=== PATIENT | male | born 1975 | race Two or more races ===

== ENCOUNTER 2018-11-03 09:18 | Emergency (ER) | payer MEDICAID ==
[~2018-11-03] VITALS: Ht 165.1 cm; Wt 106.3 kg
[~2018-11-03 09:18] MED LIST: ALBU8HFA IH; CLIN150C2 PO; CLIN300C65 PO; FENO48TA15 PO; HYDR1TAB PO; IBUP-1984 PO; INSU100V30 SQ; METF500T PO; PIOG15TA8 PO
[2018-11-03 09:52] LABS: COLOR,URINE YELLOW (Yellow); GLUCOSE, URINE >=1000 mg/dl (Neg); KETONES,URINE 40 mg/dl (Neg); LEUKOCYTE ESTERASE ,URINE NEGATIVE (Neg); NITRITES, URINE NEGATIVE (Neg); OCCULT BLOOD,URINE TRACE-LYSED (Neg); PH,URINE 5.5 (4.8-8.0); PROTEIN,URINE NEGATIVE (Neg); UROBILINOGEN,URINE 0.2 E.U/dL (0.2-1.0)
[2018-11-03 09:58] LABS: UA COLLECTION TYPE CLN CATCH MIDSTREAM
[2018-11-03 09:59] LABS: CLARITY,URINE Slightly Cloudy (Clear)
[2018-11-03 10:01] LABS: BASOPHILS % (AUTO) 0.1 % (0-1); EOSINOPHILS % (AUTO) 0.3 % (0-6); HEMATOCRIT 51.8 % (42.0-52.0); HEMOGLOBIN 17.5 g/dl (14.0-17.9); LYMPHOCYTES # (AUTO) 0.9 X10'3 (1.1-4.8); LYMPHOCYTES % (AUTO) 9.6 % (21-51); MEAN CORPUSCULAR HGB CONC 33.8 % (33.0-36.5); MEAN CORPUSCULAR VOLUME 88.8 FL (78-98); MEAN PLATELET VOLUME 9.2 FL (7.4-10.4); MONOCYTES # (AUTO) 0.2 X10'3 (0-0.9); MONOCYTES % (AUTO) 2.5 % (2-12); NEUTROPHILS # (AUTO) 7.9 X10'3 (1.8-7.7); NEUTROPHILS % (AUTO) 87.5 % (42-75); PLATELET COUNT 166 X10'3 (140-440); RED BLOOD COUNT 5.84 X10'6 (4.70-6.10); RED CELL DISTRIBUTION WIDTH 12.9 % (11.5-14.5); WHITE BLOOD COUNT 9.1 X10'3 (4.5-11.0)
[2018-11-03] MEDS ORDERED: ondansetron/PF 4mg/2ml inj IV ONE (10:05)
[2018-11-03] MEDS ORDERED: normal saline 1000ML IV soln IVB ONE ×2 (10:05)
[2018-11-03 10:19] LABS: INR 1.1 INR; PROTHROMBIN TIME 11.4 SECONDS (9.0-12.0)
[2018-11-03 10:19] LABS: BACTERIA,URINE FEW /HPF (Neg); MUCUS STRANDS NONE SEEN /LPF (Neg); RBC,URINE 0-2 /HPF (0-2); SQUAMOUS EPITHELIAL CELL,UR MANY /LPF (FEW); WBC,URINE 0-4 /HPF (0-4)
[2018-11-03 10:27] LABS: ALANINE AMINOTRANSFERASE 105 U/L (12-78); ALBUMIN 3.9 G/DL (3.4-5.0); ALBUMIN/GLOBULIN RATIO 0.8 (1.1-1.5); ALKALINE PHOSPHATASE 111 IU/L (46-116); ANION GAP 16 (8-16); ASPARTATE AMINO TRANSFERASE 61 U/L (10-37); BILIRUBIN,TOTAL 2.6 MG/DL (0.1-1.0); BLOOD UREA NITROGEN 23 MG/DL (7-18); BUN/CREATININE RATIO 24.7 (5.4-32.0); CALCIUM 9.3 MG/DL (8.5-10.1); CHLORIDE 96 MMOL/L (99-107); CREATININE 0.93 MG/DL (0.60-1.10); GLUCOSE 437 MG/DL (70-104); LIPASE 184 U/L (73-393); POTASSIUM 4.8 MMOL/L (3.5-5.1); SODIUM 133 MMOL/L (135-145); TOTAL CARBON DIOXIDE 21.2 MMOL/L (24-32); TOTAL PROTEIN 8.9 G/DL (6.4-8.2); eGFR 88 ML/MIN
[2018-11-03] MEDS ORDERED: pantoprazole 40 MG vial IV ONE (10:35)
[2018-11-03] MEDS ORDERED: ONDA4TAB6 PO (11:52)
[2018-11-03 13:05] VITALS: BP 140/95
== END 2018-11-03 13:07 | disposition home or self-care (01) ==
LOC: ER 09:18
DX: R10.13 Epigastric pain (principal); R10.33 Periumbilical pain; R11.2 Nausea with vomiting, unspecified; R19.7 Diarrhea, unspecified; R00.0 Tachycardia, unspecified; I10 Essential (primary) hypertension; E11.9 Type 2 diabetes mellitus without complications; Z79.2 Long term (current) use of antibiotics; Z79.4 Long term (current) use of insulin; Z79.84 Long term (current) use of oral hypoglycemic drugs; Z79.899 Other long term (current) drug therapy
CPT/HCPCS: 36415; 71045; 74176; 80053; 81001; 82948; 83690; 84484; 85025; 85610; 93005; 96361; 96374; 96375; 99284; C9113; J2405; J7030

== ENCOUNTER 2020-02-06 19:39 | Emergency (ER) | payer MEDICAID ==
[~2020-02-06] VITALS: Ht 165.1 cm; Wt 116.0 kg
[~2020-02-06 19:39] MED LIST changes: +ONDA4TAB6 PO
[2020-02-06] MEDS ORDERED: AMOX-422 PO (21:16)
[2020-02-06 21:40] VITALS: BP 142/101
== END 2020-02-06 21:38 | disposition home or self-care (01) ==
LOC: ER 19:41
DX: L03.012 Cellulitis of left finger (principal); I10 Essential (primary) hypertension; E11.9 Type 2 diabetes mellitus without complications; Z79.899 Other long term (current) drug therapy
CPT/HCPCS: 10060; 99283

== ENCOUNTER 2021-03-24 05:09 | Inpatient (IN) | payer MEDICAID ==
[2021-03-13 14:06] LABS: BASOPHILS # (AUTO) 0.1 X10'3 (0-0.2); BASOPHILS % (AUTO) 0.9 % (0-1); EOSINOPHILS # (AUTO) 0.3 X10'3 (0-0.9); EOSINOPHILS % (AUTO) 4.1 % (0-6); LYMPHOCYTES # (AUTO) 2.7 X10'3 (1.1-4.8); LYMPHOCYTES % (AUTO) 42.3 % (21-51); MEAN CORPUSCULAR HGB CONC 34.1 g/dL (33.0-36.5); MEAN CORPUSCULAR VOLUME 88.1 FL (78-98); MEAN PLATELET VOLUME 8.4 FL (7.4-10.4); MONOCYTES # (AUTO) 0.5 X10'3 (0-0.9); MONOCYTES % (AUTO) 7.5 % (2-12); NEUTROPHILS # (AUTO) 2.9 X10'3 (1.8-7.7); NEUTROPHILS % (AUTO) 45.2 % (42-75); PRE OP HEMATOCRIT 43.6 % (42.0-52.0); PRE OP HEMOGLOBIN 14.9 g/dL (14.0-17.9); PRE OP PLATELET COUNT 146 X10'3 (140-440); RED BLOOD COUNT 4.95 X10'6 (4.70-6.10); RED CELL DISTRIBUTION WIDTH 13.6 % (11.5-14.5)
[2021-03-13 14:08] LABS: ALBUMIN 3.6 G/DL (3.4-5.0); ALBUMIN/GLOBULIN RATIO 0.8 (1.1-1.5); ALKALINE PHOSPHATASE 79 IU/L (46-116); BLOOD UREA NITROGEN 15 MG/DL (7-18); BUN/CREATININE RATIO 20.3 (5.4-32.0); CHLORIDE 107 MMOL/L (99-107); CREATININE 0.74 MG/DL (0.60-1.10); PRE OP ALT 67 U/L (30-65); PRE OP ANION GAP 7 (8-16); PRE OP AST 33 U/L (10-37); PRE OP BILIRUB, TOTAL 0.8 MG/DL (0.0-1.0); PRE OP POTASSIUM 4.3 MMOL/L (3.4-5.1); PRE OP SODIUM 142 MMOL/L (135-145); TOTAL CARBON DIOXIDE 28.4 MMOL/L (24-32); eGFR > 90 ML/MIN
[2021-03-13 14:21] LABS: PRE OP GLUCOSE 203 MG/DL (70-104)
[2021-03-13 14:33] LABS: CLARITY,URINE SLIGHTLY CLOUDY (Clear); COLOR,URINE YELLOW (Yellow); GLUCOSE, URINE >=1000 mg/dl (Neg); KETONES,URINE TRACE mg/dl (Neg); LEUKOCYTE ESTERASE ,URINE SMALL (Neg); NITRITES, URINE NEGATIVE (Neg); OCCULT BLOOD,URINE SMALL (Neg); PROTEIN,URINE 30 mg/dl (Neg)
[2021-03-13 14:52] LABS: UA COLLECTION TYPE VOIDED
[2021-03-13 14:54] LABS: MUCUS STRANDS MODERATE /LPF (Neg); SQUAMOUS EPITHELIAL CELL,UR MODERATE /LPF (FEW)
[2021-03-13 14:55] LABS: BACTERIA,URINE 3+ /HPF (Neg)
[2021-03-24] VITALS (20 sets, daily range): BP systolic 117–148; BP diastolic 70–91
[~2021-03-24] VITALS: Ht 165.1 cm; Wt 110.0 kg
[~2021-03-24 05:09] MED LIST changes: -ALBU8HFA IH; +ATOR10TA70 PO; -CLIN150C2 PO; -CLIN300C65 PO; -FENO48TA15 PO; +HYDR-3972 PO; -HYDR1TAB PO; -IBUP-1984 PO; +INSU100V9 SQ; +LISI-790 PO; +LORA10TA7 PO; +MELO-102 PO; +METF-438 PO; -METF500T PO; -ONDA4TAB6 PO; -PIOG15TA8 PO
[2021-03-24] MEDS ORDERED: vancomycin 1,500 MG in NS 300ml IV soln IV ONE (05:30)
[2021-03-24] MEDS ORDERED: famotidine 20mg tablet PO ONE (05:30)
[2021-03-24] MEDS ORDERED: cefazolin/dext.iso 2gm/100ml IV ONE (05:30)
[2021-03-24] MEDS: ringers solution, lacted 1,000 ML IV SCH ×2 (06:09→14:42)
[2021-03-24] MEDS ORDERED: bacitracin 15gm ointment TP ONE (06:40)
[2021-03-24] MEDS ORDERED: sevoflurane 250ml liquid IH ONE (07:00)
[2021-03-24] MEDS ORDERED: midazolam 1 mg/ML 2ml injection ONE (07:03)
[2021-03-24] MEDS ORDERED: fentaNYL /PF 50mcg/ml 5ml ampule ONE (07:03)
[2021-03-24] MEDS ORDERED: insulin regular, human U-100 3ml vial - multi-dose ONE (07:12)
[2021-03-24] MEDS ORDERED: ondansetron/PF 4mg/2ml inj IV PRN ×2 (09:10→10:10)
[2021-03-24] MEDS ORDERED: ringers solution, lacted 1,000 ML IV SCH (09:10)
[2021-03-24] MEDS ORDERED: proCHLORperazine 10 MG/2 ml inj IV PRN (09:10)
[2021-03-24] MEDS ORDERED: meperidine/PF 25mg/ml syringe IV PRN ×3 (09:10)
[2021-03-24] MEDS ORDERED: morphine 2 MG/ML inj. syringe IV PRN (09:10)
[2021-03-24] MEDS ORDERED: morphine 4 MG/ML inj SYRINge IV PRN (09:10)
[2021-03-24] MEDS ORDERED: neostigmine methylsulfate 1 MG/ML 10ml vial ONE (09:48)
[2021-03-24] MEDS ORDERED: metoprolol tartrate 1mg/ml inj IV ONE (09:48)
[2021-03-24] MEDS ORDERED: LIDOcaine 2% (20mg/ml) 5ml vial ONE (09:48)
[2021-03-24] MEDS ORDERED: propofol inj 20 ML IV ONE (09:48)
[2021-03-24] MEDS ORDERED: rocuronium 10mg/ml inj IV ONE (09:48)
[2021-03-24] MEDS ORDERED: acetaminophen 1,000mg/100ml IV 100 ML IV ONE (09:48)
[2021-03-24] MEDS ORDERED: ondansetron/PF 4mg/2ml inj ONE (09:48)
[2021-03-24] MEDS ORDERED: phenylephrine 10mg/ml inj. ONE (09:48)
[2021-03-24] MEDS ORDERED: glycopyrrolate 0.2mg/ml inj ONE (09:48)
[2021-03-24] MEDS ORDERED: ePHEDrine 50MG/ML INJ. ONE (09:48)
[2021-03-24] MEDS ORDERED: ROPIVAcaine 0.5% (5mg/ml) 30ml vial ONE (09:58)
[2021-03-24] MEDS ORDERED: acetaminophen 325mg tablet PO PRN (10:10)
[2021-03-24] MEDS ORDERED: diphenhydrAMINE 25mg capsule PO PRN ×2 (10:10)
[2021-03-24] MEDS ORDERED: magnesium hydroxide 30ml (MOM) UD suspension PO PRN (10:10)
[2021-03-24] MEDS ORDERED: bisacodyl 10mg suppository rectal RC PRN (10:10)
[2021-03-24] MEDS ORDERED: HYDROmorphone inj. 0.5 MG/0.5 ML DISP.SYRIN IV PRN (10:10)
--- NOTE | 2021-03-24 10:24 | NUR ---
Received from OR via BED IN STABLE CONDITION , accompanied by Anesthesiologist and OR RNreport given by Anesthesiolsabist. Addendum: 03/24/21 at 1111 by Aixa Bay RN Amended: Links added.
[2021-03-24] MEDS ORDERED: albuterol 60 PUFF/8GM Inhaler IH ONE (10:55)
--- NOTE | 2021-03-24 11:16 | NUR ---
BLOOD SUGAR 225 DR. DAMON NOTIFIED. 7 UNITS REGULAR INSULIN IV ORDERED.
--- NOTE | 2021-03-24 12:00 | NUR ---
BLOOD SUGAR 203 Addendum: 03/24/21 at 1236 by Aixa Bay RN Amended: Links added.
--- NOTE | 2021-03-24 12:01 | NUR ---
received report from recovery, pt to [id number] a
--- NOTE | 2021-03-24 12:04 | NUR ---
PATIENT DISCHARGED FROM PACU IN STABLE CONDITION AFTER REPORT GIVEN TO CHHAYA JUNIOR TAKING OVER PATIENTS CARE AND BLOOD SUGAR DONE THAT WAS 203. PATIENT TRANSPORTED TO ROOM 4022A VIA BED WITH RN. Addendum: 03/24/21 at 1229 by Aixa Bay RN Amended: Links added.
[2021-03-24] MEDS ORDERED: HYDROcodone/acetaminophen 10/325mg tab PO PRN (14:50)
[2021-03-24] MEDS: ceFAZolin/D5W- 1GM premix 50 ML IV SCH (15:49)
[2021-03-24] MEDS: potassium cl 20mEq in 1/2 NS 1,000 ML IV SCH (15:50)
[2021-03-24] MEDS ORDERED: dextrose ORAL solution 15 GM/59 ML bottle PO PRN ×2 (17:35)
[2021-03-24] MEDS ORDERED: MESSAGE TO PHARMACY PO ONE (17:35)
[2021-03-24] MEDS ORDERED: glucagon, human recombinant 1mg kit SUBCUT PRN (17:35)
[2021-03-24] MEDS ORDERED: dextrose 50%-water 50ml dispensing syringe IV PRN ×2 (17:35)
[2021-03-24] MEDS: insulin Lispro (HumaLOG) vial - multi-dose SQ SCH ×2 (19:34→21:27)
[2021-03-24] MEDS: HYDROcodone/acetaminophen 10/325mg tab PO PRN (19:39)
[2021-03-24] MEDS ORDERED: metFORMIN 500mg tablet PO SCH (20:00)
[2021-03-24] MEDS ORDERED: insulin glargine (Lantus) pen - multi-dose SQ SCH (21:00)
[2021-03-24] MEDS ORDERED: sennosides 8.6mg tablet PO SCH (21:00)
--- NOTE | 2021-03-24 22:00 | NUR ---
pt resting. req door closed to rest. will check while sleeping
[2021-03-25] MEDS: ceFAZolin/D5W- 1GM premix 50 ML IV SCH (00:18)
[2021-03-25] MEDS: HYDROcodone/acetaminophen 10/325mg tab PO PRN ×2 (00:19→05:48)
[2021-03-25] MEDS: potassium cl 20mEq in 1/2 NS 1,000 ML IV SCH ×3 (00:21→10:10)
[2021-03-25 02:00] VITALS: BP 119/75
[2021-03-25 06:00] VITALS: BP 129/77
[2021-03-25 06:23] LABS: BASOPHILS # (AUTO) 0.1 X10'3 (0-0.2); BASOPHILS % (AUTO) 0.5 % (0-1); EOSINOPHILS % (AUTO) 0.2 % (0-6); HEMATOCRIT 39.6 % (42.0-52.0); HEMOGLOBIN 13.7 g/dl (14.0-17.9); LYMPHOCYTES # (AUTO) 2.2 X10'3 (1.1-4.8); LYMPHOCYTES % (AUTO) 21.7 % (21-51); MEAN CORPUSCULAR HEMOGLOBIN 30.8 PG (27.0-31.0); MEAN CORPUSCULAR HGB CONC 34.5 g/dL (33.0-36.5); MEAN CORPUSCULAR VOLUME 89.4 FL (78-98); MEAN PLATELET VOLUME 8.8 FL (7.4-10.4); MONOCYTES # (AUTO) 0.9 X10'3 (0-0.9); MONOCYTES % (AUTO) 9.1 % (2-12); NEUTROPHILS % (AUTO) 68.5 % (42-75); PLATELET COUNT 132 X10'3 (140-440); RED BLOOD COUNT 4.43 X10'6 (4.70-6.10); RED CELL DISTRIBUTION WIDTH 13.6 % (11.5-14.5); WHITE BLOOD COUNT 10.2 X10'3 (4.5-11.0)
[2021-03-25 06:29] LABS: ANION GAP 11 (8-16); CHLORIDE 103 MMOL/L (99-107); POTASSIUM 4.3 MMOL/L (3.5-5.1); SODIUM 137 MMOL/L (135-145); TOTAL CARBON DIOXIDE 23.1 MMOL/L (24-32)
--- NOTE | 2021-03-25 06:32 | NUR ---
pt up with PT. tolerated well with scooter. norco given.
--- NOTE | 2021-03-25 06:40 | NUR ---
Patient in room ORTHO 4022. I have received report from RUTH SHAVER and had the opportunity to ask questions and assume patient care.
[2021-03-25 07:33] VITALS: BP_SYST 129
[2021-03-25] MEDS ORDERED: loratadine 10mg tablet PO SCH (08:00)
[2021-03-25] MEDS ORDERED: insulin glargine (Lantus) pen - multi-dose SQ SCH ×2 (08:00)
[2021-03-25] MEDS ORDERED: lisinopril 5mg tablet PO SCH (08:00)
[2021-03-25] MEDS ORDERED: atorvastatin 10mg tablet PO SCH (08:00)
[2021-03-25] MEDS ORDERED: aspirin 325mg tablet PO SCH (08:30)
[2021-03-25] MEDS: insulin Lispro (HumaLOG) vial - multi-dose SQ SCH (09:39)
--- NOTE | 2021-03-25 11:35 | NUR ---
PT DISCHARGED IN STABLE CONDITION. LEFT FACILITY IN PRIVATE VEHICLE WITH . IV DC CANULA INTACT. ALL BELONGINGS IN HAND. FOLLOW UP INSTRUCTIONS GIVEN, ALL QUESTIONS ANSWERED. PT HAS SCOOTER AND CRUTCHES AT HOME FOR DC. Addendum: 03/25/21 at 1159 by Katrina Ordoñez RN Amended: Links added.
== END 2021-03-25 11:38 | disposition home or self-care (01) | DRG 314 ==
LOC: ORTHO 4S 05:09 → PAS 05:09 → ORTHO 4S 10:10 → UNDOADMIN 03-25 10:10 → ORTHO 4S 03-25 10:10 → UNDODISIN 03-25 11:38 → PAS 03-25 11:38
PROVIDERS: ADMIT Podiatrist Foot & Ankle Surgery; ATTEND Podiatrist Foot & Ankle Surgery
PROC: 0SGK07Z Fusion of Right Tarsometatarsal Joint with Autologous Tissue Substitute, Open Approach (ICD-10-PCS; 2021-03-24)
PROC: 3E0T3BZ Introduction of Anesthetic Agent into Peripheral Nerves and Plexi, Percutaneous Approach (ICD-10-PCS; 2021-03-24)
PROC: 0L8N0ZZ Division of Right Lower Leg Tendon, Open Approach (ICD-10-PCS; principal; 2021-03-24 07:00)
DX: M19.071 Primary osteoarthritis, right ankle and foot (principal); E11.610 Type 2 diabetes mellitus with diabetic neuropathic arthropathy; E78.5 Hyperlipidemia, unspecified; I10 Essential (primary) hypertension; Z79.4 Long term (current) use of insulin; Z79.899 Other long term (current) drug therapy
CPT/HCPCS: 36415; 73620; 76000; 80051; 80053; 81001; 82948; 83036; 85025; 87088; 93005; 97116; 97161; 97530; A4215; A4618; A6223; A6253; A6449; A7000; C1713; G0378; J0131; J0690; J1170; J1815; J2001; J2250; J2370; J2405; J2704; J2710; J2795; J3010; J3370; J3480; J3490; J7040; J7120; U0003; U0005

== ENCOUNTER 2025-07-07 09:23 | Outpatient (CLI) | payer MEDICARE, MEDICAID ==
[~2025-07-07 09:23] MED LIST changes: -INSU100V30 SQ; +INSU100V64 SQ; -LISI-790 PO; +LISI5TAB22 PO
--- NOTE | 2025-07-07 20:05 | RADIOLOGY REPORT ---
EXAM: CT CT LOWER EXTREMITY, CT CT LOWER EXTREMITY INDICATION: CHARCOT'S JOINT, RIGHT ANKLE AND FOOT TECHNIQUE: Axial images of right lower extremity /ankle to foot have been obtained along with coronal and sagittal reformatted images. All CT scans at this facility use dose modulation, iterative recons truction, and/or weight based dosing when appropriate to reduce radiation dose to as low as reasonabl y achievable. COMPARISON: FOOT,LIMITED (AP/LAT) on DOS: 03/24/21 FINDINGS: BONES: Appearance of bone infarct of the distal tibial diaphysis with a serpiginous calcification wit h surrounding lucency. Consider further evaluation with MRI with and without contrast if clinically indicated midfoot hardware placement. Multiple areas of osseous lucency with likely permeative diffus joseph decreased bone mineral density. of the level of the midfoot. Inconspicuous osseous lucency measu ring up to 2 mm along the margin of the 5th proximal metatarsal screws which May suggest slight loose gorge (602-11). Plantar calcaneal spur. MUSCLES: [id number] fatty infiltration along the interosseous muscle of the distal forefoot. JOINT SPACES: No joint effusion. TENDONS/LIGAMENTS: Intact. OTHER: Vascular calcifications. pressure related change along the undersurface of the 5th metatarsal IMPRESSION: 1. Midfoot Charcot arthropathy with evidence of hardware loosening particularly of the 5th metatarsal . 2. Distal tibial bone infarct. 3. No visualized joint effusion
--- NOTE | 2025-07-07 20:05 | RADIOLOGY REPORT ---
EXAM: CT CT LOWER EXTREMITY, CT CT LOWER EXTREMITY INDICATION: CHARCOT'S JOINT, RIGHT ANKLE AND FOOT TECHNIQUE: Axial images of right lower extremity /ankle to foot have been obtained along with coronal and sagittal reformatted images. All CT scans at this facility use dose modulation, iterative recons truction, and/or weight based dosing when appropriate to reduce radiation dose to as low as reasonabl y achievable. COMPARISON: FOOT,LIMITED (AP/LAT) on DOS: 03/24/21 FINDINGS: BONES: Appearance of bone infarct of the distal tibial diaphysis with a serpiginous calcification wit h surrounding lucency. Consider further evaluation with MRI with and without contrast if clinically indicated midfoot hardware placement. Multiple areas of osseous lucency with likely permeative diffus joseph decreased bone mineral density. of the level of the midfoot. Inconspicuous osseous lucency measu ring up to 2 mm along the margin of the 5th proximal metatarsal screws which May suggest slight loose gorge (412-11). Plantar calcaneal spur. MUSCLES: No abnormal attenuation. JOINT SPACES: No joint effusion. TENDONS/LIGAMENTS: Intact. OTHER: Vascular calcifications. IMPRESSION: 1. Midfoot Charcot arthropathy with evidence of hardware loosening particularly of the 5th metatarsal . 2. Distal tibial bone infarct. 3. No visualized joint effusion
== END 2025-07-07 23:59 | disposition home or self-care (01) ==
LOC: RAD 09:23
PROVIDERS: ATTEND Podiatrist Foot & Ankle Surgery
DX: M19.071 Primary osteoarthritis, right ankle and foot (principal); M79.671 Pain in right foot; G62.9 Polyneuropathy, unspecified; M14.671 Charcot's joint, right ankle and foot
CPT/HCPCS: 73700